=== PATIENT | male | born 1935 | race Caucasian/White ===

== ENCOUNTER → 2021-01-04 | Outpatient (CLI) | payer OTHER ==
[~2021-01-04] MED LIST: ASA81BEC PO; BENICAR HCT 401 EAC1 PO; BYSTOLIC 5 MG5 M1 PO; BYSTOLIC 5 MG5 MG PO; IMDUR 30 MG TAB30 M1 PO; LATANOPROST 0.2.5 ML OPHTHALMIC; MOMETASONE FURO45 GM; MUPIROCIN22 GM NARES; NIZORAL A-D125 ML TOP; PRAVASTATIN SOD20 MG PO; PRINZIDE 20-251 EACH PO; SILDENAFIL20 MG PO; TRIAMTERENE-HC1 EAC1 PO
== END ==
LOC: SJCVCIMAG 09:41
PROVIDERS: ATTEND Family Medicine
DX: I65.23 Occlusion and stenosis of bilateral carotid arteries (principal); E04.2 Nontoxic multinodular goiter; R94.39 Abnormal result of other cardiovascular function study; R09.89 Other specified symptoms and signs involving the circulatory and respiratory systems; I10 Essential (primary) hypertension; E78.00 Pure hypercholesterolemia, unspecified; K21.9 Gastro-esophageal reflux disease without esophagitis; E78.5 Hyperlipidemia, unspecified; Z88.8 Allergy status to other drugs, medicaments and biological substances; Z79.899 Other long term (current) drug therapy; Z87.891 Personal history of nicotine dependence

== ENCOUNTER 2021-01-16 07:20 | Observation (INO) | payer OTHER ==
[~2021-01-16] VITALS: Ht 175.3 cm; Wt 92.1 kg
[~2021-01-16 07:20] MED LIST changes: -ASA81BEC PO; -BENICAR HCT 401 EAC1 PO; -BYSTOLIC 5 MG5 M1 PO; -BYSTOLIC 5 MG5 MG PO; -IMDUR 30 MG TAB30 M1 PO; -LATANOPROST 0.2.5 ML OPHTHALMIC; -MOMETASONE FURO45 GM; -MUPIROCIN22 GM NARES; -NIZORAL A-D125 ML TOP; -SILDENAFIL20 MG PO
[2021-01-16 07:25] VITALS: BP 127/66
[2021-01-16] MEDS ORDERED: ASA81BEC PO (07:51)
[2021-01-16] MEDS ORDERED: BENICAR HCT 401 EAC1 PO (07:51)
[2021-01-16 07:52] LABS: HEMATOCRIT 43.6 % (42.0-52.0); HEMOGLOBIN 14.5 gm/dL (14.0-18.0); MCH 32.2 pg (26.0-34.0); MCHC 33.3 g/dL (28.0-37.0); MCV 96.7 fL (80.0-100.0); RBC 4.51 mil/uL (4.50-6.00); RDW 13.2 % (10.5-14.5)
[2021-01-16] MEDS ORDERED: SILDENAFIL20 MG PO (07:52)
[2021-01-16] MEDS ORDERED: NIZORAL A-D125 ML TOP (07:53)
[2021-01-16] MEDS ORDERED: MOMETASONE FURO45 GM (07:54)
[2021-01-16 08:02] LABS: CALCIUM 8.8 mg/dL (8.5-10.1); CREATININE 1.4 mg/dL (0.7-1.3); POTASSIUM 4.2 mmol/L (3.5-5.1)
--- NOTE | 2021-01-16 08:18 | EKG ---
[place] [address] [employer] [place] [address] ELECTROCARDIOGRAM REPORT Name: OFELIA MAHAN Room #: [facility]#: [id number] Admission: Attend Phys: Mikie Brady MD, Discharge: Date of : 37 Report #: [id number] 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 : 1935 Requested By: Mikie Brady Order Number: [id number] MD: Kemal Craven Measurements Intervals [place] Rate: 69 P: 74 [place]: 198 QRS: 42 QRSD: 118 T: 87 QT: 413 QTc: 443 Interpretive Statements Sinus rhythm Nonspecific ST and T wave abnormality Compared to ECG 02/01/2010 18:54:18 Nonspecific change in the ST and T wave segments Ventricular premature complex(es) no longer present Electronically Signed On 01-16-2021 8:18:40 CDT by Kemal Craven [email or web address] <ELECTRONICALLY SIGNED> By: Kemal Craven MD, [facility] 01/16/2118 Kemal Craven MD, [facility] /EPI
[2021-01-16 14:19] LABS: ABSOLUTE NEUTROPHILS 5.2 thou/uL (1.4-8.2); BASOPHILS 0.3 % (0.0-2.0); EOSINOPHILS 1.7 % (0.0-3.0); HEMATOCRIT 43.2 % (42.0-52.0); HEMOGLOBIN 14.7 gm/dL (14.0-18.0); LYMPHOCYTES 22.9 % (24.0-44.0); MCH 32.9 pg (26.0-34.0); MCV 96.7 fL (80.0-100.0); PLATELET COUNT 266 thou/uL (150-400); POLYS 66.1 % (36.0-66.0); RBC 4.47 mil/uL (4.50-6.00); RDW 13.1 % (10.5-14.5); WBC 7.8 thou/uL (4.0-11.0)
[2021-01-16 14:23] LABS: CALCIUM 8.8 mg/dL (8.5-10.1); CREATININE 1.4 mg/dL (0.7-1.3); POTASSIUM 4.1 mmol/L (3.5-5.1)
[2021-01-16 14:26] LABS: APTT 27.1 Seconds (24.5-32.8); INR 0.97; PROTIME 10.6 Seconds (10.5-12.1)
[2021-01-16 14:29] LABS: ALBUMIN 3.9 g/dL (3.4-5.0); TOTAL BILIRUBIN 0.7 mg/dL (0.2-1.0); TOTAL PROTEIN 7.5 g/dL (6.4-8.2)
[2021-01-17 00:06] LABS: GLYCOHEMOGLOBIN (HGB A1C) 5.9 % (4.8-5.6)
[2021-01-17] MEDS ORDERED: BYSTOLIC 5 MG5 M1 PO (08:09)
[2021-01-17] MEDS ORDERED: IMDUR 30 MG TAB30 M1 PO (08:09)
[2021-01-17 11:46] LABS: URINE BILIRUBIN NEGATIVE (Negative); URINE BLOOD 3+ (Negative); URINE CLARITY CLEAR; URINE COLOR YELLOW; URINE GLUCOSE-RANDOM* NEGATIVE (Negative); URINE KETONES NEGATIVE (Negative); URINE LEUKOCYTES-REFLEX NEGATIVE (Negative); URINE NITRITE-REFLEX NEGATIVE (Negative); URINE PROTEIN (DIPSTICK) NEGATIVE (Negative); URINE UROBILINOGEN 0.2 E.U./dl (0.2-1.0)
[2021-01-17 12:33] LABS: BACTERIA-REFLEX 1-9 Few /HPF (None Seen); CASTS None Seen /LPF (None Seen); CRYSTALS None Seen /LPF (None Seen); SQUAMOUS 0-3 Few /LPF (0-3); URINE RBC 3-10 Few /HPF (NONE SEEN); URINE WBC-REFLEX 0-5 Rare /HPF (0-5)
--- NOTE | 2021-01-17 13:52 | CATHLAB ---
[facility] [place] [address] INVASIVE PROCEDURE REPORT Name: GALOTORRIEFADUMOOFELIA Ger Room #: REG DEEPAK Jarek.#: [id number] Admission: 01/16/21 Attend Phys: Mikie Brady MD, Discharge: Date of : 37 Report #: [id number] THIS REPORT FOR: cc: Jun Sanon MD, Neal A. MD Mancuso, Gerald M. MD [facility] ~ APPROVED REPORT Study performed: 01/16/2021 07:22:31 Patient Details The patient is a 85 year-old male Event Personnel Mikie Brady Facility Supervisor, Amando Bhardwaj RN RN, Essence Méndez RTR, CLAUDIA Scrub, Radha Gomez RTR Scrub, Grace Parsons Monitor Procedures Performed Art Access - R femoral artery* Left Heart Cath w/or w/o Coronaries [id number] [facility] Renal Bilateral Peripheral Angiography 7945470 CVRENALBIL Aortogram Abdominal Peripheral Angio 522812 81158 Initial Mod Sed Same Phys/QHP Gr 764496 11348 Mod Sed Same Phys/QHP Ea 869529 Indication Chest pain Procedure Narrative The Right Groin^ was infiltrated with 1% Lidocaine subcutaneous anesthesia. A PINNACLE 6FR Sheath #[id number] sheath was inserted into the RFA 6F^. Coronary angiography was performed using coronary diagnostic catheters. The right coronary system was accessed and visualized with a JR4 catheter. The left coronary system was accessed and visualized with a JL4 catheter. The left ventricle was accessed and visualized with a STR PIG catheter. The patient tolerated the procedure well and there were no complications associated with the procedure. There was no hematoma. Intraoperative Conscious Sedation Sedation start time: 857 Case end Time: 934 Fentanyl 50 mcg Versed 1 mg [facility] [place] [address] INVASIVE PROCEDURE REPORT Name: OFELIA MAHAN Room #: [facility]#: [id number] Admission: 01/16/21 Attend Phys: Mikie Brady, Discharge: Date of : 37 Report #: [id number] Fluoro Time: 1.80 minutes Dose: DAP 7133.00 cGycm2 895 mGy Contrast Type and Amount: Visipaque 100 ml Hemodynamics The aortic pressure is 102/49 mmHg with a mean of 67 mmHg. The left ventricular pressure is 103/5 mmHg with a mean of mmHg. The left ventricular end diastolic pressure is 16 mmHg. Conclusion #1. Left main moderately calcified high-grade eccentric mid vessel lesion of 90% giving rise to LAD and circumflex. #2 ostial LAD just off the left main also 90% giving rise to the mildly diseased LAD diagonal system. Mid LAD with an eccentric 90% lesion. LAD extends around the apex well preserved. Diagonal branch also well-preserved after this mid vessel lesion. #3 circumflex OM nondominant high rising OM ramus branch mildly diseased. #4 dominant right coronary with mild to moderate irregularity in the mid vessel 50 to 60% with a preserved PDA GISEL anatomically dominant. #5 normal left ventricular size and systolic function EF 55 to 60% #6 left renal artery widely patent single. #7 a dual supply to the right renal artery superior larger branch has a 50% lesion with a high-grade lesion in the inferior branch of 90%. Will follow noninvasively.. Recommendations and plan: Continue aggressive risk factor modification. This is high-grade complex calcified disease. Will require revascularization by bypass surgery. LV function is preserved. CV surgical consultation. Patient is pain-free with resolution of any EKG changes transfer to CCU. <ELECTRONICALLY SIGNED> By: Mikie Brady MD, FACC 01/17/21 1352 1352 135 Mikie Brady MD, FACC /INF
[2021-01-18] MEDS ORDERED: BYSTOLIC 5 MG5 MG PO (08:51)
[2021-01-18] MEDS ORDERED: IMDUR 30 MG TAB30 M1 PO (08:52)
[2021-01-18] MEDS ORDERED: LATANOPROST 0.2.5 ML OPHTHALMIC (08:55)
[2021-01-18] MEDS ORDERED: MUPIROCIN22 GM NARES (08:56)
== END 2021-01-17 11:51 | disposition home or self-care (01) ==
LOC: CATH 07:20 → 4S 09:31 → CATH 10:45 → 4S 01-17 11:51
PROVIDERS: Physician Assistant; ADMIT Internal Medicine Cardiovascular Disease; ATTEND Internal Medicine Cardiovascular Disease
DX: I25.10 Atherosclerotic heart disease of native coronary artery without angina pectoris (principal); I10 Essential (primary) hypertension; K21.9 Gastro-esophageal reflux disease without esophagitis; E78.5 Hyperlipidemia, unspecified; Z79.899 Other long term (current) drug therapy; Z88.1 Allergy status to other antibiotic agents

== ENCOUNTER → 2021-01-17 | Outpatient (CLI) | payer OTHER ==
[~2021-01-17] MED LIST changes: +ASA81BEC PO; +BENICAR HCT 401 EAC1 PO; +BYSTOLIC 5 MG5 M1 PO; +BYSTOLIC 5 MG5 MG PO; +IMDUR 30 MG TAB30 M1 PO; +LATANOPROST 0.2.5 ML OPHTHALMIC; +MOMETASONE FURO45 GM; +MUPIROCIN22 GM NARES; +NIZORAL A-D125 ML TOP; +SILDENAFIL20 MG PO
== END ==
LOC: SJCVCIMAG 11:27
PROVIDERS: ATTEND Internal Medicine Cardiovascular Disease
DX: Z01.810 Encounter for preprocedural cardiovascular examination (principal); I25.10 Atherosclerotic heart disease of native coronary artery without angina pectoris; M79.661 Pain in right lower leg; M79.662 Pain in left lower leg

== ENCOUNTER 2021-01-21 06:09 | Inpatient (IN) | payer OTHER ==
[~2021-01-21] VITALS: Ht 175.3 cm; Wt 89.6 kg
[2021-01-21] VITALS (31 sets, daily range): BP systolic 101–129; BP diastolic 42–62
[2021-01-21 12:20] LABS: HEMATOCRIT 27.8 % (42.0-52.0); MCH 32.9 pg (26.0-34.0); MCHC 33.7 g/dL (28.0-37.0); MCV 97.8 fL (80.0-100.0); RBC 2.85 mil/uL (4.50-6.00); RDW 12.8 % (10.5-14.5); WBC 19.4 thou/uL (4.0-11.0)
[2021-01-21 12:24] LABS: HEMOGLOBIN 9.4 gm/dL (14.0-18.0)
[2021-01-21 12:36] LABS: APTT 30.4 Seconds (24.5-32.8); PROTIME 15.3 Seconds (10.5-12.1)
[2021-01-21 12:38] LABS: INR 1.43
[2021-01-21 13:11] LABS: POC BE 0 mmol/L (-2.0 to +3.0); POC CA IONIZED 4.7 mg/dL (4.5-5.3); POC GLUCOSE 130 mg/dL (70-99); POC HCO3 25.6 mmol/L (22.0-26.0); POC HEMOGLOBIN 11.9 g/dL (14.0-18.0); POC POTASSIUM 4.3 mmol/L (3.5-5.1); POC SODIUM 141 mmol/L (136-145); POC pCO2 43.2 mmHg (35.0-45.0); POC pH 7.381 (7.360-7.450)
[2021-01-21 13:11] LABS: POC BE 0 mmol/L (-2.0 to +3.0); POC CA IONIZED 4.1 mg/dL (4.5-5.3); POC GLUCOSE 132 mg/dL (70-99); POC HCO3 25.3 mmol/L (22.0-26.0); POC HEMOGLOBIN 10.2 g/dL (14.0-18.0); POC POTASSIUM 4.2 mmol/L (3.5-5.1); POC SODIUM 140 mmol/L (136-145); POC pCO2 42.8 mmHg (35.0-45.0); POC pH 7.379 (7.360-7.450)
[2021-01-21 13:11] LABS: POC BE -3 mmol/L (-2.0 to +3.0); POC CA IONIZED 4.8 mg/dL (4.5-5.3); POC GLUCOSE 159 mg/dL (70-99); POC HCO3 22.2 mmol/L (22.0-26.0); POC HEMOGLOBIN 10.2 g/dL (14.0-18.0); POC POTASSIUM 4.3 mmol/L (3.5-5.1); POC SODIUM 142 mmol/L (136-145); POC pCO2 38.4 mmHg (35.0-45.0)
[2021-01-21 13:11] LABS: POC BE 2 mmol/L (-2.0 to +3.0); POC CA IONIZED 4.7 mg/dL (4.5-5.3); POC GLUCOSE 113 mg/dL (70-99); POC HCO3 26.4 mmol/L (22.0-26.0); POC HEMOGLOBIN 12.2 g/dL (14.0-18.0); POC POTASSIUM 4.3 mmol/L (3.5-5.1); POC SODIUM 142 mmol/L (136-145); POC pCO2 38.9 mmHg (35.0-45.0)
[2021-01-21 13:11] LABS: POC BE 0 mmol/L (-2.0 to +3.0); POC CA IONIZED 4.4 mg/dL (4.5-5.3); POC GLUCOSE 153 mg/dL (70-99); POC HCO3 24.9 mmol/L (22.0-26.0); POC HEMOGLOBIN 9.5 g/dL (14.0-18.0); POC POTASSIUM 4.6 mmol/L (3.5-5.1); POC SODIUM 142 mmol/L (136-145); POC pCO2 41.3 mmHg (35.0-45.0); POC pH 7.388 (7.360-7.450)
[2021-01-21 13:11] LABS: POC BE 0 mmol/L (-2.0 to +3.0); POC CA IONIZED 4.3 mg/dL (4.5-5.3); POC GLUCOSE 145 mg/dL (70-99); POC HCO3 25.2 mmol/L (22.0-26.0); POC HEMOGLOBIN 8.8 g/dL (14.0-18.0); POC POTASSIUM 4.8 mmol/L (3.5-5.1); POC SODIUM 139 mmol/L (136-145); POC pCO2 43.9 mmHg (35.0-45.0); POC pH 7.367 (7.360-7.450)
[2021-01-21 13:11] LABS: POC BE 0 mmol/L (-2.0 to +3.0); POC CA IONIZED 4.5 mg/dL (4.5-5.3); POC GLUCOSE 154 mg/dL (70-99); POC HCO3 25.1 mmol/L (22.0-26.0); POC HEMOGLOBIN 10.2 g/dL (14.0-18.0); POC POTASSIUM 4.8 mmol/L (3.5-5.1); POC SODIUM 141 mmol/L (136-145); POC pCO2 42.6 mmHg (35.0-45.0); POC pH 7.377 (7.360-7.450)
[2021-01-21 13:11] LABS: POC BE -3 mmol/L (-2.0 to +3.0); POC CA IONIZED 4.5 mg/dL (4.5-5.3); POC GLUCOSE 155 mg/dL (70-99); POC HCO3 22.6 mmol/L (22.0-26.0); POC HEMOGLOBIN 10.9 g/dL (14.0-18.0); POC POTASSIUM 4.1 mmol/L (3.5-5.1); POC SODIUM 143 mmol/L (136-145); POC pCO2 40.1 mmHg (35.0-45.0); POC pH 7.359 (7.360-7.450)
--- NOTE | 2021-01-21 13:40 | NUR ---
received from surgery with OR crew to ICU #251 for immediate post op recovery post CABG X4. report received from Dr. Walters and crew. Sedated on vent, SR, MCT X2 and PCT to -20 cm suction, patent. see assessment for details.
[2021-01-21 14:07] LABS: BE(vivo) -8.3 mmol/L (-2 to +3); HCO3 18.3 mmol/L (22.0-26.0); PO2 180.6 mmHg (80.0-100.0)
[2021-01-21 14:08] LABS: pH 7.258 (7.360-7.450)
[2021-01-21 14:09] LABS: HEMATOCRIT 31.3 % (42.0-52.0); HEMOGLOBIN 10.6 gm/dL (14.0-18.0); MCH 32.8 pg (26.0-34.0); MCHC 33.8 g/dL (28.0-37.0); MCV 97.1 fL (80.0-100.0); RBC 3.23 mil/uL (4.50-6.00); RDW 12.8 % (10.5-14.5); WBC 19.9 thou/uL (4.0-11.0)
[2021-01-21 14:15] LABS: CALCIUM 7.3 mg/dL (8.5-10.1); CREATININE 1.3 mg/dL (0.7-1.3); MAGNESIUM 2.2 mg/dL (1.8-2.4); POTASSIUM 4.5 mmol/L (3.5-5.1)
[2021-01-21 14:20] LABS: APTT 26.6 Seconds (24.5-32.8); INR 1.1; PROTIME 11.9 Seconds (10.5-12.1)
--- NOTE | 2021-01-21 15:15 | NUR ---
albumin 250cc given for rio bp down to upper 80's and lower filling pressure. Varsha, significant other/spouse and pt's daughter present, updated on pt status. Questions answered. Varsha present to see pt in room. additional dose albumin administered for lowering bp and for lower filling pressures.
[2021-01-21 16:59] LABS: BE(vivo) -11.7 mmol/L (-2 to +3); HCO3 16.5 mmol/L (22.0-26.0); PCO2 46.7 mmHg (35.0-45.0); PO2 94.2 mmHg (80.0-100.0); sO2 95.1 % (92.0-98.0)
[2021-01-21 17:00] LABS: pH 7.167 (7.360-7.450)
--- NOTE | 2021-01-21 17:08 | EKG ---
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 : 1935 Requested By: Efrem Buckley Order Number: [id number] MD: Wilfred Ochoa Measurements Intervals [place] Rate: 97 P: 84 PA: 188 QRS: 60 QRSD: 116 T: 58 QT: 398 QTc: 506 Interpretive Statements Sinus rhythm Baseline wander in lead(s) V1,V2,V3 Compared to ECG 01/17/2021 06:58:51 No significant change Electronically Signed On 01-21-2021 17:08:13 CDT by Wilfred Ochoa [email or web address] <ELECTRONICALLY SIGNED> By: Wilfred Ochoa MD, [facility] 01/21/21 1708 06 06 Wilfred Ochoa MD, [facility] /EPI
[2021-01-21 18:16] LABS: CALCIUM 7.2 mg/dL (8.5-10.1); CREATININE 1.5 mg/dL (0.7-1.3); POTASSIUM 4.8 mmol/L (3.5-5.1)
[2021-01-21 18:43] LABS: BE(vivo) -9.6 mmol/L (-2 to +3); HCO3 16.4 mmol/L (22.0-26.0); PCO2 36.1 mmHg (35.0-45.0); PO2 99.3 mmHg (80.0-100.0); pH 7.275 (7.360-7.450); sO2 96.8 % (92.0-98.0)
[2021-01-21 19:12] LABS: BE(vivo) -9.5 mmol/L (-2 to +3); HCO3 17.5 mmol/L (22.0-26.0); PCO2 42.3 mmHg (35.0-45.0); pH 7.234 (7.360-7.450); sO2 96.2 % (92.0-98.0)
--- NOTE | 2021-01-21 19:33 | NUR ---
pt awakening spontaneously, moving all extremities. cpap trial completed with abg's with critical ph 7.[address] Cheung. returned to assist control. when pt awake, replaced on cpap. pt restless and irritated that breathing tube remains in. abg's post cpap communicated to Dr. Cheung. pt extubated per Dr. Cheung's order. extubated at 1933 by RT Merrill, placed on 50% face shield. report given to JOSE MARTIN Ramirez.
[2021-01-21 20:15] LABS: BE(vivo) -9.3 mmol/L (-2 to +3); HCO3 18.2 mmol/L (22.0-26.0); PCO2 46.3 mmHg (35.0-45.0); PO2 123.7 mmHg (80.0-100.0); sO2 97.7 % (92.0-98.0)
[2021-01-21 20:16] LABS: pH 7.213 (7.360-7.450)
[2021-01-22] VITALS (21 sets, daily range): BP systolic 79–122; BP diastolic 35–92
--- NOTE | 2021-01-22 06:45 | NUR ---
01/21/21, 2100: Pt changed frm 50% face shield to 5 L canula. Sat remains > 94% 2300: O2 titrated down to 2 L, sat remains > 93%. Pt requesting pain med q1-2 hours for sternal and left back pain. Fentanyl given q 2 hrs as ordered. 01/22/21: 0145: Amiodorone gtt turned off due to heart rate dropping below 60 at times and hypotension not corrected with albumin bolus. Urine output decreasing. Abarca irrigated with 30 cc NS. 10 cc urine plus irrigation fluid returned, no clots. 0300: Blood sugar down to 91; insulin gtt put on hold. Lidoderm patch tried for left back pain. Pt reports it helps. Urine output remains poo despite albumin boluses. 0400: Bladder scan shows zero cc in bladder. Pt started on double strength Levophed to keep MAP > 60 per previous orders given by Dr Cheung. Mediastinal and plural chest tubes draining 10-50 cc bloody drainage per hour. Hemodynamics stable.
[2021-01-22 06:54] LABS: HEMATOCRIT 30.5 % (42.0-52.0); HEMOGLOBIN 9.7 gm/dL (14.0-18.0); MCH 32.5 pg (26.0-34.0); MCV 101.7 fL (80.0-100.0); WBC 18.4 thou/uL (4.0-11.0)
[2021-01-22 07:06] LABS: CALCIUM 7.1 mg/dL (8.5-10.1); CREATININE 2.3 mg/dL (0.7-1.3); MAGNESIUM 2.5 mg/dL (1.8-2.4); POTASSIUM 4.9 mmol/L (3.5-5.1)
--- NOTE | 2021-01-22 07:26 | EKG ---
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
--- NOTE | 2021-01-22 08:11 | NUR ---
Nutrition: S/P CABG x 4, POD 1. RD to followup and assess education needs when out of ICU and closer to D/C.
--- NOTE | 2021-01-22 09:06 | NUR ---
Chart review. discussed during am rounds. s/p CABG x 4, pod # 1. Cm tried to visit with him, he voiced he did not want to talk now, took pain pill an hour ago and still in pain. Cm letting him rest and passed on information to bedside nurse.
--- NOTE | 2021-01-22 09:37 | NUR ---
MED W FENTANYL FOR OP PAIN.PT STATES PAIN PILL HASN'T HELPED AT ALL. SPLINTING RESP'S,GRUNTING IN RESPONE TO ?'S.WOULD NOT REPOS-WILL ATTEMPT LATER.--VW
--- NOTE | 2021-01-22 12:45 | NUR ---
[place] dc'd and L leg starr wrap removed at 1155, well tolerated. SB with poor "p wave", low bp, restarted levophed 4 mcg/min. ventricular paced-80, MA/current-10. pt with flattened effect, drowsy yet restless. Dr. Cheung present, updated. low bloody urine output per sr. (sr irrigated prior to Dr. Cheung's arrival, urine remained patent, bloody without clots.)
[2021-01-22 14:45] LABS: CALCIUM 7.4 mg/dL (8.5-10.1)
[2021-01-22 14:46] LABS: CREATININE 3.3 mg/dL (0.7-1.3)
[2021-01-22 14:55] LABS: POTASSIUM 6.3 mmol/L (3.5-5.1)
[2021-01-22 15:11] LABS: BE(vivo) -17.6 mmol/L (-2 to +3); HCO3 13.6 mmol/L (22.0-26.0); PCO2 56.6 mmHg (35.0-45.0); PO2 87.7 mmHg (80.0-100.0); sO2 90.8 % (92.0-98.0)
[2021-01-22 15:12] LABS: pH 6.999 (7.360-7.450)
--- NOTE | 2021-01-22 16:00 | NUR ---
second call placed to answering service regarding follow up for renal consult. renal md to be available as soon as office pt's completed. Dr. Cheung and EMMY Medina present. pt joanne/arnold. based on low blood pressures at 1500, despite levophed up to 14 mcg/min, dobutamine started at 5 mcg/kg/hr. 1/2 NS 500cc bolus infusing, albumin infusing. now on bipap 07/08, rate-20, fio2-50%.
[2021-01-22 16:16] LABS: BE(vivo) -17.6 mmol/L (-2 to +3); HCO3 12.4 mmol/L (22.0-26.0); PCO2 46.8 mmHg (35.0-45.0); PO2 91.1 mmHg (80.0-100.0); pH 7.041 (7.360-7.450); sO2 92.7 % (92.0-98.0)
[2021-01-22 17:17] LABS: BE(vivo) -16.4 mmol/L (-2 to +3); HCO3 13.2 mmol/L (22.0-26.0); PCO2 47.4 mmHg (35.0-45.0); PO2 75.7 mmHg (80.0-100.0); pH 7.064 (7.360-7.450); sO2 88.6 % (92.0-98.0)
--- NOTE | 2021-01-22 17:30 | NUR ---
Dr. Chow previously returned call for consult. updated. lasix 80 mg iv, an amp D50 administered, insulin gtt remains in progress. additional dose of albuterol nebulizer 10 mg x1 administered by . Traci pate failing to read an accurate waveform, discontinued by Dr. Cheung with new line placed in L wrist.
--- NOTE | 2021-01-22 19:15 | NUR ---
insulin gtt previously off. Dr. Chow was present. call placed for renal consult and md returned call. updated on pt status- hematuria/oliguria/BRODY, he will see pt in am.
--- NOTE | 2021-01-22 19:30 | NUR ---
BEDSIDE REPORT GIVEN FROM JOSE MARTIN RVIERA. ALL LINES AND ACCESS SITES VISUALIZED BY BOTH RN'S. PT ASSESSED PER ICU PROTOCOL. DOBUTAMINE GTT AND LEVOPHED GTT IN PLACE FOR BLOOD PRESSURE SUPPORT. PT A&OX4. BIPAP AT 50% FIO2. BRITO IN PLACE, MAKING APPROX 5ML/HR DARK RED URINE. 1929 - DR. BUENO AT BEDSIDE ROUNDING. 2021 - DR. CAMEJO CALLED TO CLARIFY IV FLUID ORDERS. ADDITIONAL ORDERS RECEIVED, REFER TO EMAR. 2099 - PT STARTED DECLINING, HR WAS SUSTAINED IN 40'S INTERNAL PACEMAKER TURNED ON. BLOOD PRESSUE GOT LOW 68/31. LEVOPHED GTT WAS TITRATED ACCORDINGLY TO MAINTAIN A MAP >65. DR. BUENO WAS CALLED AND NOTIFIED OF THE CHANGES IN PT STATUS, AND CRITICAL ABG'S. STAT ECHO ORDERED. 2121 - ON CAR SUPERVISOR CALLED IN STATING THEY WERE ON THERE WAY IN. 2124 - NELL NOTIFIED OF CRITIAL LACTIC ACID AND CRITICAL ABG'S. 2129 - DR. BUENO AT BEDSIDE. NOTIFIED OF CRITICAL LACTIC ACID. PACEMAKER WAS TURNED OFF. 2144 - ON CAR SUPERVISOR AT BEDSIDE. 2149 - VERBAL ORDER RECEIVED FROM DR. BUENO TO START IV ALBUMIN AND TO MAINTAIN A CVP.
[2021-01-22 20:57] LABS: HCO3 12.9 mmol/L (22.0-26.0); PCO2 43.1 mmHg (35.0-45.0); PO2 98.8 mmHg (80.0-100.0); pH 7.094 (7.360-7.450); sO2 94.9 % (92.0-98.0)
[2021-01-23 04:40] LABS: HEMATOCRIT 24.7 % (42.0-52.0); HEMOGLOBIN 8.2 gm/dL (14.0-18.0); MCH 32.7 pg (26.0-34.0); MCHC 33.2 g/dL (28.0-37.0); MCV 98.4 fL (80.0-100.0); RBC 2.51 mil/uL (4.50-6.00); RDW 13.4 % (10.5-14.5); WBC 12.8 thou/uL (4.0-11.0)
[2021-01-23 05:20] LABS: ALBUMIN 4.2 g/dL (3.4-5.0); CALCIUM 6.8 mg/dL (8.5-10.1); PHOSPHORUS 6.8 mg/dL (2.5-4.9); POTASSIUM 4.5 mmol/L (3.5-5.1); TOTAL BILIRUBIN 0.9 mg/dL (0.2-1.0); TOTAL PROTEIN 6.2 g/dL (6.4-8.2)
[2021-01-23 07:01] LABS: BE(vivo) -9.8 mmol/L (-2 to +3); HCO3 15.8 mmol/L (22.0-26.0); PCO2 33.7 mmHg (35.0-45.0); PO2 115.6 mmHg (80.0-100.0); sO2 97.8 % (92.0-98.0)
--- NOTE | 2021-01-23 07:33 | NUR ---
PATIENT APPEARS RESTLESS. HE HAS AN INCREASE RESP, RATE WHILE ON BIPAP. PATIENT CONTINUES TO GET GOOD VOLUMES AND LOW PRESSURES ON BIPAP.
[2021-01-23 08:02] LABS: BE(vivo) -11.8 mmol/L (-2 to +3); HCO3 15.1 mmol/L (22.0-26.0); PCO2 38.3 mmHg (35.0-45.0); PO2 280.2 mmHg (80.0-100.0); sO2 99.5 % (92.0-98.0)
[2021-01-23 08:03] LABS: pH 7.214 (7.360-7.450)
[2021-01-23 08:05] VITALS: BP 102/42
--- NOTE | 2021-01-23 08:22 | 2DMMODE ---
[address] [address] 2 D/M-MODE ECHOCARDIOGRAM Name: OFELIA MAHAN Room #: 251-P ADM IN M.R.#: [id number] Admission: 01/21/21 Attend Phys: Jaren Cheung MD Discharge: Date of : 37 Report #: [id number] THIS REPORT FOR: cc: Jun Sanon MD, Neal A. MD Santiago, Patrick MD [facility] ~ APPROVED REPORT Study performed: 01/22/2021 21:55:43 EXAM: Limited 2D and color flow Echocardiogram Patient Location: ICU Room #: [facility] Status: on-call BSA: 2.11 HR: 77 bpm BP: 73/47 mmHg Other Information Study Quality: Technically Difficult and Technically Limited Technically limited study due to post operative dressings, inability to position patient. Indications Hypotension CAD Post CABG. Very limited exam due to post op dressings. 2D Dimensions RVDd: 45.53 mm Left Ventricle The overall left ventricular systolic function appears within normal limits. Right Ventricle Right ventricle is dilated. Aortic Valve The aortic valve is not well visualized. Mitral Valve Mitral valve is not well visualized. [address] [address] D/M-MODE ECHOCARDIOGRAM Name: OFELIA MAHAN Room #: 251-P [facility] IN ..#: [id number] Admission: 01/21/21 Attend Phys: Jaren Cheung MD Discharge: Date of : 37 Report #: [id number] Tricuspid Valve Tricuspid valve is not well visualized. Pulmonic Valve Pulmonic valve is not visualized. Pericardium There is no pericardial effusion. <Conclusion> Technically very difficult study Left ventricle appears to be normal in size. Normal septal thickness Ejection fraction around 50-55% Unable to comment on wall motion abnormality. Valves not well visualized No pericardial effusion <ELECTRONICALLY SIGNED> By: Wilfred Ochoa MD, FACC 01/23/21821 1 1 Wilfred Ochoa MD, FACC /INF
[2021-01-23 08:57] VITALS: BP 86/39
--- NOTE | 2021-01-23 11:30 | NUR ---
>>>>>>>>>>>>>> 0745- Dr. Cheung present. platelets low- per order HIT panel drawn and sent to lab. >>>>>>>>>>>>>> 0750- With 2 RN assist, quickly attempted placement of gastric tube in each nare however met with resistance upon insertion. pt vagaled, eyes rolled back, unresponsive, with hr-40's. pacemaker vent rate-80, MA-10 restarted per cardiac pacing wire. EMMY Medina and Angel Jones, Cardiology SURFACE TO AIR WEAPONS OFFICER present. >>>>>>>>>>>>>> 0820- Dr. Chakraborty present, updated. Dr. Godinez consulted, present. >>>>>>>>>>>>>> 0920- Second attempt- ng placement unsuccessful. pt vagaled, unresponsive, paced, immediately replaced on bipap. EMMY Medina, Dr. Chakraborty and Dr. Godinez present along with resp therapist. with previous coordination for immediate intubation if needed, Dr. Godinez placed an ett-8.0, 24fr at teeth, well tolerated. confirmed placement with end tidal c02 detector and lung sounds per ascultation. og tube placed-56cm at lips, well tolerated. pcxr/kub completed to confirm ett/og tube placement. >>>>>>>>>>>>>> 0935- OG drained 700cc yellow/knox clear secretions with intermittent large amounts of air. Dr. Brady present, updated on pt status. >>>>>>>>>>>>>> 1130- propofol started when pt awakening/restless at 1030. then lasix gtt 10mg/hr continous started at 1130. Varsha- significant other present, updated on pt status.
[2021-01-23 11:35] LABS: BE(vivo) -7.5 mmol/L (-2 to +3); HCO3 17.9 mmol/L (22.0-26.0); PCO2 35.5 mmHg (35.0-45.0); PO2 284.6 mmHg (80.0-100.0); sO2 99.6 % (92.0-98.0)
--- NOTE | 2021-01-23 11:53 | NUR ---
PER TITTRATED PATIENT RATE FROM 20 TO 18 PER ABG. RT TITRATED OXYGEN FOR 100% NOW DOWN TO 40% PER ABG PO2 284.6
[2021-01-23 12:00] VITALS: BP 78/38
--- NOTE | 2021-01-23 13:57 | NUR ---
Chart review. during am rounds, required to be intubated. s/p CABG day # 2. cm called daughter anya [phone], she passed on that her brother jesús who goes by raya is main contact but she can visit with cm about dads independence at home. Lives alone, very independent. manage own medication. drives vehicle, runs own errands when needed. no hh or rehab in past. no falls at home. PCP Dr Sanon.
--- NOTE | 2021-01-23 14:27 | NUR ---
consent obtained. Dr. Marks present to place temporary dialysis catheter at 1410 at bedside. accompanied by interventional radiology crew. procedure well tolerated, portable chest x ray completed to confirm placement.
[2021-01-23 16:00] VITALS: BP 82/43
--- NOTE | 2021-01-23 17:01 | NUR ---
P.T. EVAL PLACED ON HOLD DUE TO PT DECLINE IN MEDICAL STATUS W/NEED FOR RE- INTUBATION AND DIALYSIS. REQUEST NEW P.T. ORDERS WHEN PT IS DEEMED APPROPRIATE FOR P.T. INTERVENTIONS.
--- NOTE | 2021-01-23 19:15 | NUR ---
dialysis in progress without fluid removal. titrating vasoactive gtts, sa02 down to 81%, suctioned x2 obtaining scant amount thick secretions. vent increased to Fi02 to 60%, in increments of 10%. spoke with resp therapy to update on pt status/vent change. report to jostin Modi RN.
[2021-01-24 07:51] LABS: ALBUMIN 3.3 g/dL (3.4-5.0); CALCIUM 6.8 mg/dL (8.5-10.1); CREATININE 3.7 mg/dL (0.7-1.3)
[2021-01-24 07:52] LABS: HEMATOCRIT 23.3 % (42.0-52.0); HEMOGLOBIN 8.1 gm/dL (14.0-18.0); MCH 33.1 pg (26.0-34.0); MCHC 34.8 g/dL (28.0-37.0); MCV 95.2 fL (80.0-100.0); RBC 2.44 mil/uL (4.50-6.00); RDW 13.4 % (10.5-14.5); WBC 8.1 thou/uL (4.0-11.0)
[2021-01-24 08:00] VITALS: BP 86/32
--- NOTE | 2021-01-24 09:10 | NUR ---
Chart review, discussed with MEDICAL OFFICE CLERK. Remains on vent, having dialysis today. Family at bedside. No anticipated no over the weekend. Will cont. following as needed for dc needs.
[2021-01-24 09:54] LABS: POTASSIUM 3.4 mmol/L (3.5-5.1)
--- NOTE | 2021-01-24 10:44 | NUR ---
ASSUMED CARE 0700. [employer] UP & RUNNING ~0845. TREY BLACKBURN,ALIVIA ALL IN TO SEE. LONG D/W PT'S SON & S.O. BY MELCHOR BUENO & TREY. IRENE HD AT TIS TIME.--VW
[2021-01-24 13:27] VITALS: BP 107/47
--- NOTE | 2021-01-24 16:12 | O ---
[facility] [place] [address] OPERATIVE REPORT Name: OFELIA MAHAN Room #: 251-P ADM IN M.R.#: [id number] Admission: 01/21/21 Attend Phys: Jaren Cheung MD Discharge: Date of : 37 Report #: [id number] THIS REPORT FOR: cc: Jun Sanon MD, Neal A. MD Forman,Jaren Leon MD ~ DOC #: [id number] Jaren Cheung MD DATE OF SERVICE: 01/21/2021 PREOPERATIVE DIAGNOSIS: Coronary artery disease. POSTOPERATIVE DIAGNOSIS: Coronary artery disease. OPERATION: Coronary artery bypass x4 including left internal mammary artery to left anterior descending artery, saphenous vein to diagonal and ramus and saphenous vein to posterior descending artery and endoscopic harvest, left greater saphenous vein. SURGEON: Dr. Jaren Cheung. GOLD CHARMER: EMMY Maurer. ANESTHESIA: General. INDICATION: The patient is an 85-year-old with coronary artery disease. Catheterization demonstrated a 90% left main as well as a 90% mid LAD lesion. Circumflex is nondominant with the largest vessel in the ramus position, right coronary had a 60% lesion. Left ventricular function satisfactory. FINDINGS AND TECHNIQUE: After general anesthesia was established, saphenous vein was harvested using an endoscopic approach and prepared for use as a conduit. Exposure was obtained through median sternotomy. Left internal mammary artery was harvested from chest wall. Pericardial well was made. Cannulation sutures were placed. Heparin was given. Aorta was cannulated. Right atrium was cannulated. Cardioplegia needle was positioned in the aortic root. Retrograde cardioplegic catheter was placed in the coronary sinus. Cardiopulmonary bypass was established. Aorta was cross clamped. Antegrade and retrograde cardioplegia were given. Ice was poured into the pericardial well. The heart was stopped. During electromechanical arrest, the distal anastomoses were performed. An end-to-side anastomosis was made between vein and the posterior descending artery. Cold cardioplegia was given. Separate segment of vein was sewn in [facility] [address] [place] [address] OPERATIVE REPORT Name: OFELIA MAHAN Room #: 251-P [facility] IN M.R.#: [id number] Admission: 01/21/21 Attend Phys: Jaren Cheung MD Discharge: Date of : 39 Report #: [id number] end-to-side fashion to the ramus intermedius. Cold cardioplegia was given. The same segment of vein was sewn in end-to-side fashion to the second diagonal. Cold cardioplegia was given. Left internal mammary artery was sewn in end-to-side fashion to the left anterior descending artery. Patency of this vessel was checked with the temperature technique and the Doppler. Cold cardioplegia was given. Two proximal anastomoses were performed. When these were complete, warm retrograde cardioplegia was given followed by warm continuous blood through the coronary sinus. When this infusion was complete, the crossclamp was removed. De-airing maneuvers were performed. The anastomoses were inspected and found to be satisfactory. As the patient warmed, nice cardiac activity resumed, chest tubes and pacing wires were placed. A marker was placed around the proximal anastomoses. When the patient was warm, he was weaned from cardiopulmonary bypass. Venous cannula was removed. Protamine was given, the aortic cannula was removed. Flows were measured in the bypass grafts. When hemostasis was satisfactory, chest was irrigated with antibiotic solution and closed in the usual fashion. The patient was taken to the Intensive Care Unit in good condition having tolerated the procedure well. All counts were reported as correct. MD SALVADOR Puente/MODE <ELECTRONICALLY SIGNED> By: Jaren Cheung MD 01/24/21 1612 1846 14 Jaren Cheung MD /nt
[2021-01-24 17:07] LABS: HEPATITIS B SURFACE AG Negative (Negative)
[2021-01-24 22:00] VITALS: BP 97/38
[2021-01-25] VITALS (7 sets, daily range): BP systolic 84–123; BP diastolic 33–52
[2021-01-25 05:23] LABS: ABSOLUTE NEUTROPHILS 9.8 thou/uL (1.4-8.2); BASOPHILS 0.1 % (0.0-2.0); EOSINOPHILS 0.2 % (0.0-3.0); HEMATOCRIT 26.3 % (42.0-52.0); HEMOGLOBIN 8.9 gm/dL (14.0-18.0); LYMPHOCYTES 6.4 % (24.0-44.0); MCH 32.8 pg (26.0-34.0); MCHC 33.9 g/dL (28.0-37.0); MCV 96.8 fL (80.0-100.0); MONOCYTES 8.2 % (1.0-8.0); PLATELET COUNT 78 thou/uL (150-400); POLYS 85.1 % (36.0-66.0); RBC 2.72 mil/uL (4.50-6.00); RDW 13.5 % (10.5-14.5); WBC 11.5 thou/uL (4.0-11.0)
[2021-01-25 05:39] LABS: ALBUMIN 2.9 g/dL (3.4-5.0); CALCIUM 7.5 mg/dL (8.5-10.1); CREATININE 4.1 mg/dL (0.7-1.3); POTASSIUM 4.2 mmol/L (3.5-5.1); TOTAL BILIRUBIN 1.8 mg/dL (0.2-1.0); TOTAL PROTEIN 5.1 g/dL (6.4-8.2)
[2021-01-25 08:09] LABS: HCO3 26.5 mmol/L (22.0-26.0); PCO2 32.1 mmHg (35.0-45.0); PO2 102.7 mmHg (80.0-100.0); pH 7.535 (7.360-7.450); sO2 98.3 % (92.0-98.0)
--- NOTE | 2021-01-25 08:13 | NUR ---
Received phone call from pt. son raya who stated he was in here and had question about his records here, who hospital will contact and dpoa? CM visited with son and daughter in law. Education that contacts austyn is (jesús) raya, Maritza, and Varsha. Son voiced that is fine, Varsha can get information, but she will not make decision for him, she is his girlfriend, and he would want her to get information, but she is not his decision maker, DPOA is son and daughter. CM encouraged for him to leave copy, but he was concerned that would change want dad wanted when he came in for surgery? Education that that would not change in less Dr discussed changing the plan of care or goals.
--- NOTE | 2021-01-25 09:11 | EKG ---
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 : 1935 Requested By: Efrem Buckley Order Number: [id number] MD: Wilfred Ochoa Measurements Intervals [place] Rate: 90 P: 0 RI: 142 QRS: 59 QRSD: 94 T: 57 QT: 384 QTc: 470 Interpretive Statements Sinus rhythm Transient Ventricular bigeminy Abnormal R-wave progression, early transition Compared to ECG 01/22/2021 07:08:09 No significant changes Electronically Signed On 01-25-2021 9:11:30 CDT by Wilfred Ochoa [email or web address] <ELECTRONICALLY SIGNED> By: Wilfred Ochoa MD, [facility] 06/910 2 2 Wilfred Ochoa MD, [facility] /EPI
--- NOTE | 2021-01-25 17:24 | NUR ---
Nurse rounded at bedside with physicians today. Family and physicians updated on patient status, progress, and care plan. Dialysis today, Dr. Guillaume was able to talk with patients family this afternoon. Gtt's are being titrated for desired effect. Amiodarone started today, pvc rate has decreased with blood pressure 100's-140's. When patient has increased frequency of pvc's, it is noted that his blood pressure lowers to 70's-80's systolic. With less pvc's, patients blod pressure higher. Patient opened eyes today, tracked nurse, and followed simple commands with gripping hands. Plan of care is to continue to monitor patient vital signs, urine output, chest tube status, patients neuro status, and ability to lower gtt's per physician order. Patient progressing towards plan of care.
[2021-01-26] VITALS: BP 119/44
[2021-01-26 04:00] VITALS: BP 121/54
[2021-01-26 04:11] LABS: BE(vivo) -0.3 mmol/L (-2 to +3); HCO3 22.6 mmol/L (22.0-26.0); PCO2 29.9 mmHg (35.0-45.0); PO2 63.1 mmHg (80.0-100.0); pH 7.496 (7.360-7.450); sO2 94.1 % (92.0-98.0)
[2021-01-26 04:38] LABS: ABSOLUTE NEUTROPHILS 9.3 thou/uL (1.4-8.2); BASOPHILS 0.4 % (0.0-2.0); EOSINOPHILS 0.6 % (0.0-3.0); HEMATOCRIT 25.4 % (42.0-52.0); HEMOGLOBIN 8.6 gm/dL (14.0-18.0); LYMPHOCYTES 5.8 % (24.0-44.0); MCH 32.5 pg (26.0-34.0); MCHC 33.6 g/dL (28.0-37.0); MCV 96.7 fL (80.0-100.0); MONOCYTES 13.1 % (1.0-8.0); PLATELET COUNT 98 thou/uL (150-400); POLYS 80.1 % (36.0-66.0); RBC 2.63 mil/uL (4.50-6.00); RDW 13.9 % (10.5-14.5); WBC 11.6 thou/uL (4.0-11.0)
[2021-01-26 04:56] LABS: ALBUMIN 2.8 g/dL (3.4-5.0); CALCIUM 7.5 mg/dL (8.5-10.1); CREATININE 3.6 mg/dL (0.7-1.3); POTASSIUM 4.9 mmol/L (3.5-5.1); TOTAL BILIRUBIN 2.2 mg/dL (0.2-1.0); TOTAL PROTEIN 5.3 g/dL (6.4-8.2)
[2021-01-26 08:00] VITALS: BP 127/52
[2021-01-26 12:01] VITALS: BP 107/42
[2021-01-26 16:00] VITALS: BP 118/46
--- NOTE | 2021-01-26 16:59 | NUR ---
SPOKE W/ PT'S DAUGHTER, LIANG ON THE PHONE. UPDATE GIVEN. REASSURANCES AND EMOTIONAL SUPPORT PROVIDED.
--- NOTE | 2021-01-26 18:25 | NUR ---
PT TOLERATED HEMODIALYSIS TODAY W/ 500 CC PULLED OFF. PT TOLERATED ACTIVE TITRATION DOWN OF LEVOPHED AND DOBUTAMINE. AMIODARONE DRIP TO REMAIN PER DR. CARDONA. PROPOFOL TITRATED DOWN SLIGHTLY. PT RESPONSIVE TO TACTILE STIMULI AND MOVES LOWER EXTREMITIES INDEPENDENTLY. PT AFEBRILE TODAY. MULTIPLE FAMILY MEMBERS IN TO VISIT TODAY W/ PHONE CALL FROM PT'S DAUGHTER FOR UPDATE WELL. PT REMAINS IN GUARDED CONDITION BUT SLOWLY PROGRESSING TOWARD GOALS.
[2021-01-26 20:00] VITALS: BP 105/48
[2021-01-27 00:01] VITALS: BP 94/31
[2021-01-27 04:00] VITALS: BP 106/45
[2021-01-27 05:04] LABS: ALBUMIN 2.4 g/dL (3.4-5.0); CALCIUM 7.4 mg/dL (8.5-10.1); CREATININE 3.2 mg/dL (0.7-1.3); POTASSIUM 4.8 mmol/L (3.5-5.1)
[2021-01-27 07:36] LABS: BE(vivo) 2.5 mmol/L (-2 to +3); HCO3 26.5 mmol/L (22.0-26.0); PCO2 38.4 mmHg (35.0-45.0); PO2 94.9 mmHg (80.0-100.0); pH 7.456 (7.360-7.450); sO2 97.6 % (92.0-98.0)
--- NOTE | 2021-01-27 19:30 | NUR ---
progressing. when sedation decreased, moves ezra toes to command. sr with bigemeny, low dose dobutamine and levophed, propofol decreased, cpap trial from 0700 till 1100, well tolerated. mct and pct air leaks resolved. Varsha-girlfriend, significant other present, updated. Jaren- son and his present, updated.
[2021-01-27 19:56] VITALS: BP 94/36
[2021-01-27 20:01] VITALS: BP 109/34
[2021-01-27 23:15] VITALS: BP 106/25
[2021-01-28] VITALS (12 sets, daily range): BP systolic 73–152; BP diastolic 26–72
[2021-01-28 05:26] LABS: ALBUMIN 2.3 g/dL (3.4-5.0); CALCIUM 7.4 mg/dL (8.5-10.1); PHOSPHORUS 6.5 mg/dL (2.6-4.7); POTASSIUM 4.9 mmol/L (3.5-5.1)
[2021-01-28 05:27] LABS: CREATININE 4.7 mg/dL (0.7-1.3)
--- NOTE | 2021-01-28 11:21 | NUR ---
Nutrition: NPO x 4 days. If pt not extubated today. REC start Nepro tube feeds to reach 40 mL/hr for now.
--- NOTE | 2021-01-28 12:25 | NUR ---
Chart review. Discussed during am rounds. He remains on vent, nutritional support. Having dialysis today. IV drips. son and patient girl friend andreia at bedside. Will cont following as needed for dc needs.
--- NOTE | 2021-01-28 19:15 | NUR ---
progressing today. in am, mct/pct dc'd with post pcxr completed. flotrac initiated. opening eyes spontaneously, moving r hand and ezra lower ext to command, sr with bigeminal pvc's. dobutamine, levophed titrated off, amiodarone iv changed to po. from [id number], propofol off. pt coughing, red in face and bucking vent. propofol restarted. Dr. Godinez present again in afternoon. precedex started per order, propofol off, pt resting, tolerating vent. from [id number], dialysis in progress- 500cc fluid removal. all blood returned. able to titrate off dobutamine and levophed during dialysis run. post dialysis hr-32, pacemaker turned on with rate-80, vent MA-10, capturing consistently. levophed restarted @ 1600 for sbp down to 70's and as low as 69. bp with significant flucuations being elevated when dialysis blood returned and when low post dialysis. held off on cpap trials at this time related to cardiac instability. Jaren-son present, Varsha- girlfriend present both present in am, updated. Maritza-daughter called, updated.
[2021-01-28 23:14] LABS: BE(vivo) -2.1 mmol/L (-2 to +3); PCO2 34.7 mmHg (35.0-45.0); PO2 154.5 mmHg (80.0-100.0)
[2021-01-29] VITALS (8 sets, daily range): BP systolic 73–136; BP diastolic 39–70
[2021-01-29 05:55] LABS: ALBUMIN 2.2 g/dL (3.4-5.0); CALCIUM 7.5 mg/dL (8.5-10.1); CREATININE 3.8 mg/dL (0.7-1.3); PHOSPHORUS 5.5 mg/dL (2.5-4.9); POTASSIUM 4.7 mmol/L (3.5-5.1)
--- NOTE | 2021-01-29 05:58 | NUR ---
Patient has done well on the Precedex. Wakes easily but back to sleep unless stimulated. Denies pain. Heart rate and rhythm stable this shift. Paced in the beginning of the shift but has been in his own SR most of the night. Blood pressure labile. SBP drops with suctioning, repositioning, coughing but does return to normal after a short while without intervention. Afebrile. Noticeing some PVCs this am. Levophed continues at 3 mcgs/min. Adequate oxygenation on current vent settings. Patient did CPAP for about 4 hours at the beginning of the shift. Tolerating well. ABGs noted. Some bloody secretions from ETT noted. CXR done this am. Started tube feeds, Nepro at 10 mls/hr. Minimal residual this am. U/O 60 mls this shfit. Bath given. all dressings changed. Am labs drawn. Awaiting results. No family called this shift. Patient is progressing towards goals. See documentation on interventions for assessment details.
--- NOTE | 2021-01-29 08:35 | NUR ---
Dr. Godinez present, updated. Dr. Boo" renal present, updated.
[2021-01-29 10:09] LABS: BE(vivo) -0.6 mmol/L (-2 to +3); HCO3 23.3 mmol/L (22.0-26.0); PCO2 35.7 mmHg (35.0-45.0); PO2 111.4 mmHg (80.0-100.0); pH 7.433 (7.360-7.450); sO2 98.2 % (92.0-98.0)
--- NOTE | 2021-01-29 10:10 | NUR ---
abg's completed after cpap trial. plan to extubate. rn administering amiodarone po and Dr. Godinez ok with extubating after medication has time to absorb. tube feeding off.
--- NOTE | 2021-01-29 12:02 | EKG ---
[address] [place] [address] ELECTROCARDIOGRAM REPORT Name: OFELIA MAHAN Room #: 251-P [facility] IN M.R.#: [id number] Admission: 01/21/21 Attend Phys: Jaren Cheung MD Discharge: Date of : 39 Report #: [id number] [facility] Test Date: 2021-01-29 Test Time: 10:30:32 Pat Name: OFELIA MAHAN Department: Room: [facility] Gender: M Product Marketing Consultant: SBBETO : [id number] Requested By: Jaren Cheung Order Number: [id number] MD: Kemal Craven Measurements Intervals [place] Rate: 130 P: [place]: QRS: 98 QRSD: 186 T: 243 QT: 457 QTc: 672 Interpretive Statements Ventricular pacing Compared to ECG 01/25/2021 07:43:35 Ventricular pacing is now present Electronically Signed On 01-29-2021 12:02:41 CDT by Kemal Craven [email or web address] <ELECTRONICALLY SIGNED> By: Kemal Craven MD, [facility] 01/29/21 1202 1030 1030 Kemal Craven MD, FACC /EPI
--- NOTE | 2021-01-29 12:05 | NUR ---
extubated at 1205 by resp therapy, placed on face mask 50%.
--- NOTE | 2021-01-29 19:37 | NUR ---
pt progressing, extubated, currently on 5L/nc, coughed up thick sputum with use of yankauer. sr irrigated with continued clear light brown urine draining. lasix iv given, had total 225 cc urine output. remains strickly npo. family and friend present to see pt today, updated. both providing support to pt.
[2021-01-30] VITALS (24 sets, daily range): BP systolic 65–143; BP diastolic 34–86
[2021-01-30 04:56] LABS: ALBUMIN 2.1 g/dL (3.4-5.0); CALCIUM 7.3 mg/dL (8.5-10.1); POTASSIUM 4.4 mmol/L (3.5-5.1)
[2021-01-30 05:13] LABS: CREATININE 5.2 mg/dL (0.7-1.3)
--- NOTE | 2021-01-30 05:54 | NUR ---
Patient was awake a lot of the night. Just this am, soundly sleeping. Patient confused at times, frequent reorientation. Patient has been v-paced this entire shift, PVCs on/off. SBP maintained on 2 mgs/min of levophed. Precedex continues at 1 mcg/kg/hr. Adequate oxygenation on 2L/NC. Good cough effort. Kept NPO until speech sees him this am. Am labs drawn and results noted. Plans for hemodialysis today. No family called this shift. Patient is progressing towards goals. See documentation on interventions for assessment details.
--- NOTE | 2021-01-30 17:28 | NUR ---
DR EVANS WANTING RT IJ LINE CHANGED OUT 01/31/21
[2021-01-31] VITALS (51 sets, daily range): BP systolic 88–160; BP diastolic 43–79
[2021-01-31 05:11] LABS: HEMATOCRIT 24.6 % (42.0-52.0); HEMOGLOBIN 8.4 gm/dL (14.0-18.0); MCH 32.7 pg (26.0-34.0); MCHC 34.2 g/dL (28.0-37.0); MCV 95.5 fL (80.0-100.0); RBC 2.57 mil/uL (4.50-6.00); RDW 13.5 % (10.5-14.5); WBC 13.5 thou/uL (4.0-11.0)
[2021-01-31 05:20] LABS: ALBUMIN 2.5 g/dL (3.4-5.0); CALCIUM 7.8 mg/dL (8.5-10.1); PHOSPHORUS 5.2 mg/dL (2.5-4.9); POTASSIUM 4.2 mmol/L (3.5-5.1)
[2021-01-31 05:40] LABS: CREATININE 4.2 mg/dL (0.7-1.3)
--- NOTE | 2021-01-31 07:53 | NUR ---
Pt remains stable. He remains AAOx4. Levophed gtt is off since last night. He became hypertensive this morning. Start cardene gtt to keep BP < 160 mmHg. Continue progressing toward goals.
--- NOTE | 2021-01-31 10:29 | NUR ---
Nutrition: pt without significant nutrition > 1 week. Not safe for oral intake yet per ST. Consider replacement of dobhoff and resume Nepro at 40 mL/hr. Pt meeting criteria for severe malnutrition.
--- NOTE | 2021-01-31 17:14 | NUR ---
NOTIFIED BY FOR PICC PLACEMENT, DE. HICKS (RENAL) APPROVED PICC PLACEMENT. CONSENT NOTED. THE RIGHT UPPER ARM BASILIC WAS WIDLEY PATENT. A #4F PICC WAS ATTEMPTED X 2 AND UNSUCCESSFUL. THE LINE COILED AND WOULD NOT DROP INTO THE SVC. A 4F MIDLINE WAS PLACED. LINE WAS SECURED AND RELEASED FOR USE
[2021-02-01] VITALS (40 sets, daily range): BP systolic 109–153; BP diastolic 40–94
--- NOTE | 2021-02-01 05:26 | NUR ---
No event tonight. Pt remains AAOx4. He is able to rest well tonight. Denies of any pain. Denies of any dyspnea. He refused breathing treatment t/o the shift. He is awares of benefits from med. Taking PO poorly. Rima remains patent with great amount of U/O. VSS. No changes of cardiac rhtyhms,pacer remains off. Continue to progress slowly toward goals.
[2021-02-01 05:36] LABS: ALBUMIN 2.9 g/dL (3.4-5.0); CALCIUM 7.9 mg/dL (8.5-10.1); PHOSPHORUS 5.6 mg/dL (2.6-4.7); POTASSIUM 3.8 mmol/L (3.5-5.1)
[2021-02-01 05:47] LABS: CREATININE 5.3 mg/dL (0.7-1.3)
--- NOTE | 2021-02-01 09:27 | NUR ---
Chart review, discussed during am rounds and los. He on o2 per nasal cannula. Possible will be ready to transfer out of icu. Started making urine. Will have dialysis today. No anticipated dc through weekend. Will cont. following as needed for dc needs.
--- NOTE | 2021-02-01 20:06 | NUR ---
PATIENT IS SLOWLY PROGRSSING TOWARDS OUTCOME GOALS. CONFUSED UPON AWAKENING FROM A NAP HE THOUGHT THE KLEENEX BOX WAS A SANDWHICH. ABLE TO FEED SELF DINNER. PO FLUIDS ENCOURAGED.
[2021-02-02] VITALS (22 sets, daily range): BP systolic 119–144; BP diastolic 41–65
[2021-02-02 05:10] LABS: ALBUMIN 2.6 g/dL (3.4-5.0); CALCIUM 7.8 mg/dL (8.5-10.1); PHOSPHORUS 3.8 mg/dL (2.6-4.7); POTASSIUM 3.9 mmol/L (3.5-5.1)
[2021-02-02 05:12] LABS: CREATININE 3.6 mg/dL (0.7-1.3)
[2021-02-02 06:04] LABS: HEMATOCRIT 23.7 % (42.0-52.0); HEMOGLOBIN 7.8 gm/dL (14.0-18.0); MCHC 32.9 g/dL (28.0-37.0); MCV 97.2 fL (80.0-100.0); RBC 2.44 mil/uL (4.50-6.00); RDW 14.1 % (10.5-14.5); WBC 11.9 thou/uL (4.0-11.0)
--- NOTE | 2021-02-02 07:00 | NUR ---
Pt remains stable in this shift. No s/sx of any distess indicates. Slowly progessing toward goals.
--- NOTE | 2021-02-02 18:13 | NUR ---
PATIENT ARRIVED AT 1805. REPORT RECIEVED FROM JOSE MARTIN WILKINSON. UPON ARRIVAL, PATIENT IS A/O X4, 2L NC, FRANKS, MAX ASSIST AND FC. PATIENT HAS NO C/O CHEST PAIN OR SHORTNESS OF BREATH.
--- NOTE | 2021-02-02 18:27 | NUR ---
Pt alert and oriented x4. Pt got up to chair with PT today. Family at bedside most of the day. Urine output adequate throughout the day. Pt tranferred to CCU Room 206.Son Jaren was left a voicemail regarding pt transfer to ccu.
[2021-02-02 18:51] LABS: HEMATOCRIT 25.4 % (42.0-52.0); HEMOGLOBIN 8.4 gm/dL (14.0-18.0)
--- NOTE | 2021-02-03 03:13 | NUR ---
Assessment completed as documented.Pt been resting in no acute distress.A/ox4.vss.on o2 at 1liters pnc,sats adequate.No resp distress reported.Rima dd,adequate uo.s/p cabg, sternal incisions with pino dressing CDI. SR w/pvcs on monitor.Denies pain.IS encouraged,pulling 500.pt has loose cough.Denies any needs or concerns.
[2021-02-03 04:22] VITALS: BP 117/80
[2021-02-03 05:54] LABS: ALBUMIN 2.8 g/dL (3.4-5.0); CALCIUM 7.9 mg/dL (8.5-10.1); CREATININE 4.1 mg/dL (0.7-1.3); DIRECT BILIRUBIN 0.6 mg/dL (<0.1-0.2); PHOSPHORUS 4.4 mg/dL (2.5-4.9); POTASSIUM 3.6 mmol/L (3.5-5.1); TOTAL BILIRUBIN 1.2 mg/dL (0.2-1.0); TOTAL PROTEIN 6.1 g/dL (6.4-8.2)
[2021-02-03 07:42] VITALS: BP 117/46
[2021-02-03 11:51] VITALS: BP 124/70
[2021-02-03 15:39] VITALS: BP 130/46
--- NOTE | 2021-02-03 16:34 | NUR ---
ASSUMED CARE SHIFT CHANGE. VSS, NO C/O PAIN. MEDS GIVEN PER OCT. PT UP WITH PHYS THERAPY IRENE FAIR. SPOUSE AT BEDSIDE THROUGHOUT SHIFT. TINY DRSNG INTACT AND FUNCTIONAL. O2 SATS WNL 1-2L O2 NC. ADEQUATE URINE OUTPUT. APPETITE ADEQUATE, REMAINS ON NECTAR THICK LEQUIDS, IRENE FAIR. PT PROGRESSING SLOWLY TOWARDS GOALS. CONT POC, DENIES NEEDS AT THIS TIME. WILL PASS ON REPORT TO JOHN PHILIPPE.
[2021-02-03 20:00] VITALS: BP 135/57
[2021-02-04] VITALS (8 sets, daily range): BP systolic 133–149; BP diastolic 52–70
[2021-02-04 04:27] LABS: CREATININE 4.3 mg/dL (0.7-1.3); PHOSPHORUS 4.6 mg/dL (2.6-4.7); POTASSIUM 3.5 mmol/L (3.5-5.1)
--- NOTE | 2021-02-04 05:58 | NUR ---
SLEPT MOST OF SHIFT. ASSIST TO REPOSITION NEEDED. WORKING ON GOALS AND PLAN OF CARE FOR NOC. DENIES COMPLAINTS OF PAIN OR SHORTNESS OF AIR. ON RA PATIENT 89-90% SO REMAINS ON 1L/NC. CONTINUE TO ASSES CLOSELY.
--- NOTE | 2021-02-04 15:12 | NUR ---
CONSULT RECEIVED THIS DATE FOR DR. HARPER TO SEE PATIENT. PATIENT HAS INSURANCE THAT REQUIRES AUTHORIZATION. INSURANCE COMPANIES CLOSED THIS DATE DUE TO HOLIDAY. PATIENT WILL BE SEEN TOMORROW, 02/05/21, BY VY CALABRESE. IF PATIENT IS APPROPRIATE FOR ACUTE REHAB STAY AND DESIRES [facility] ADMISSION, AUTHORIZATION WILL BE REQUESTED.
[2021-02-05] VITALS (8 sets, daily range): BP systolic 123–180; BP diastolic 51–97
--- NOTE | 2021-02-05 04:30 | NUR ---
SLEPT MOST OF SHIFT. DENIES COMPLAINTS OF PAIN OR SHORTNESS OF AIR. REMAINS ON 2L/NC AT THIS TIME. STATES IS JUST GETTING TIRED OF BEING HERE AND WANTS TO GO HOME. POSSIBLE TRANSFER TO REHAB TODAY OR THURSDAY. VOIDING PER URINAL WITHOUT PROBLEMS. CONTINUE TO ASSES CLOSELY.
[2021-02-05 08:04] LABS: CALCIUM 8.3 mg/dL (8.5-10.1); POTASSIUM 3.7 mmol/L (3.5-5.1)
[2021-02-05 08:08] LABS: ALBUMIN 3.2 g/dL (3.4-5.0); PHOSPHORUS 4.1 mg/dL (2.6-4.7)
[2021-02-05] MEDS ORDERED: IRON325 PO (13:33)
[2021-02-05] MEDS ORDERED: ALBUTEROL2.5 MG/0.5 INH (13:34)
[2021-02-05] MEDS ORDERED: IPRAT-ALBUT 0.5-3 ML INH (13:34)
[2021-02-05] MEDS ORDERED: PACERONE 200 M200 M1 PO (13:34)
[2021-02-05] MEDS ORDERED: NORVASC5 MG PO (13:35)
[2021-02-05] MEDS ORDERED: LIPITOR40 MG PO (13:35)
[2021-02-05] MEDS ORDERED: ADULT LOW DOSE81 MG PO (13:36)
[2021-02-05] MEDS ORDERED: HYDROCODON-ACE1 EAC7 PO (13:36)
[2021-02-05] MEDS ORDERED: PULMICORT0.5 MG/21 INH (13:45)
[2021-02-05] MEDS ORDERED: PROTONIX 20 MG20 M1 PO (13:46)
--- NOTE | 2021-02-05 16:45 | NUR ---
PT CARE ASSUMED AT 0700. ASSESSMENTS CHARTED. MEDICATIONS CHARTED. PERLITA MIDLINE. URINAL. STERNUM; TINY DRESSING. DIET: HH, THIN LIQUIDS, FLUID RESTRICTION: 2000 ML, ACHS. PT TO BE TRANSFERRED TO REHAB ONCE INSURANCE ACCEPTS. DIALYSIS: TEMPORARY CATHETER, SHEILA.
--- NOTE | 2021-02-05 16:57 | NUR ---
Case discussed with the care team. [facility] liason indicates they can accept pending ins auth and bed availability. They have submitted auth today. No dialysis today. CTS aware and agreeable to acute rehab once auth rec'd. Will follow.
[2021-02-06 03:12] LABS: CALCIUM 7.8 mg/dL (8.5-10.1); CREATININE 3.3 mg/dL (0.7-1.3); POTASSIUM 3.2 mmol/L (3.5-5.1)
[2021-02-06 03:56] VITALS: BP 129/73
--- NOTE | 2021-02-06 07:49 | NUR ---
SLEPT PART OF SHIFT. DENIES NEED FOR CHEST PAIN. REMAINS ON 2L/NC. DENIES SHORTNESS OF AIR. PROGRESSING SLOWLY TOWARDS POSSIBLE DISCHARGE TO REHAB. CONTINUE TO ASSES. MAINTAIN FLUID RESTRICTION.
[2021-02-06 07:50] VITALS: BP 137/61
--- NOTE | 2021-02-06 09:37 | NUR ---
PATIENT IS A CANDIDATE FOR ACUTE REHAB ADMISSION. AUTHORIZATION FOR REHAB REQUESTED 02/05/21. AWAITING INSURANCE RESPONSE.
[2021-02-06 11:35] VITALS: BP 127/79
[2021-02-06 15:25] VITALS: BP 148/56
[2021-02-06 19:45] VITALS: BP 140/51
[2021-02-07 04:08] VITALS: BP 145/61
[2021-02-07 07:51] VITALS: BP 146/55
[2021-02-07 08:06] LABS: ALBUMIN 3.1 g/dL (3.4-5.0); CALCIUM 8.1 mg/dL (8.5-10.1); CREATININE 2.7 mg/dL (0.7-1.3); PHOSPHORUS 3.2 mg/dL (2.5-4.9); POTASSIUM 3.5 mmol/L (3.5-5.1)
[2021-02-07 11:19] VITALS: BP 124/47
--- NOTE | 2021-02-07 12:06 | NUR ---
LEFT TEMPORARY DIALYSIS LINE REMOVED PER POLICY. PRESSURE HELD FOR 10-15MN. AN OCCLUSIVE DRESSING APPLIED AND EDUCATION ON CHEEPING THE SITE OCCLUSIVE FOR 48 HOURS DISCUSSED WELL THE PATIENT WOULD NEED T BE LESS ACTIVE FOR AN HOUR POST REMOVAL TO HELP PREVENT BLEEDING. THE PATIENT VERBALIZED UNDERSTANDING
--- NOTE | 2021-02-07 12:42 | NUR ---
[facility] elias indicates pt's insurance plan has approved an acute rehab stay. He is dc ready today per the attending and CTS. Staff updated and pt is anxious to get his rehab started. Dc to [facility] anticipated later this afternoon once the bed is available.
[2021-02-07 15:28] VITALS: BP 136/48
--- NOTE | 2021-02-07 15:37 | NUR ---
REPORT GIVEN TO JOSE MARTIN ANDERSON ON . NO QUESTIONS OR CONCERNS DURING REPORT. PATIENTS DISCHARGE PAPERS AND PRINTED SCRIPTS SENT WITH PATIENT. AT BEDSIDE UPDATED ON WHICH ROOM PATIENT GOING TO.
== END 2021-02-07 16:10 | DRG 235 ==
LOC: PRE 06:09 → ICU 06:23 → TBA 06:23 → PRE 10:12 → ICU 14:07 → 2N 02-02 18:10
PROVIDERS: Family Medicine; Hospitalist; Internal Medicine; Internal Medicine Nephrology; Nurse Practitioner Adult Health; Pediatrics; Physician Assistant; ADMIT Surgery Vascular Surgery; ATTEND Surgery Vascular Surgery
DX: I25.10 Atherosclerotic heart disease of native coronary artery without angina pectoris (principal); R57.0 Cardiogenic shock; J96.21 Acute and chronic respiratory failure with hypoxia; E43 Unspecified severe protein-calorie malnutrition; J18.9 Pneumonia, unspecified organism; N17.9 Acute kidney failure, unspecified; D62 Acute posthemorrhagic anemia; E87.2 Acidosis; G72.81 Critical illness myopathy; E87.0 Hyperosmolality and hypernatremia; I70.1 Atherosclerosis of renal artery; Z20.822 Contact with and (suspected) exposure to COVID-19; E78.5 Hyperlipidemia, unspecified; E04.1 Nontoxic single thyroid nodule; N18.9 Chronic kidney disease, unspecified; E78.00 Pure hypercholesterolemia, unspecified; D72.829 Elevated white blood cell count, unspecified; D69.6 Thrombocytopenia, unspecified; R74.01 Elevation of levels of liver transaminase levels; D64.9 Anemia, unspecified; D49.4 Neoplasm of unspecified behavior of bladder; E11.22 Type 2 diabetes mellitus with diabetic chronic kidney disease; I12.9 Hypertensive chronic kidney disease with stage 1 through stage 4 chronic kidney disease, or unspecified chronic kidney disease; R31.0 Gross hematuria; I49.9 Cardiac arrhythmia, unspecified; R53.81 Other malaise; E87.6 Hypokalemia; I95.9 Hypotension, unspecified; I48.91 Unspecified atrial fibrillation; Z79.82 Long term (current) use of aspirin; Z79.899 Other long term (current) drug therapy; Z98.42 Cataract extraction status, left eye; Z98.41 Cataract extraction status, right eye; Z68.29 Body mass index [BMI] 29.0-29.9, adult
CPT/HCPCS: 10078; 10081; 27000; 32100; 47000; 47001; 47002; 47297; 48889; 50010; 50249; 50668; 51301; 52259; 52287; 53327; 53358; 54118; 56455; 56524; 56525; 56526; 56527; 56528; 56531; 56534; 56668; 56719; 56760; 56898; 57093; 57116; 57167; 62110; 62950; 65003; 65020; 65040; 65090; 65120; 65135

== ENCOUNTER 2021-02-07 11:45 | Inpatient (IN) | payer OTHER ==
[~2021-02-07] VITALS: Ht 175.3 cm; Wt 90.4 kg
--- NOTE | ~2021-02-07 | PLAN ---
[facility] [place] [address] REHAB UNIT PLAN OF CARE Name: OFELIA MAHAN Room #: 514-P ADM IN M.R.#: [id number] Admission: 02/07/21 Attend Phys: Tam Huff MD Discharge: Date of : 39 Report #: [id number] THIS REPORT FOR: cc: Jun Sanon MD, Neal A. MD Smithson,Tam Umanzor MD ~ DATE OF SERVICE: 02/09/2021 OVERALL PLAN OF CARE SUBJECTIVE: The overall plan of care is based on the pre-admit screen and information garnered from therapy assessments. The patient has been working with the rehabilitation therapy team. 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 Transfers are mod assist with gait up to 100 feet with a front-wheeled walker, needing assistance. In occupational therapy, lower body dressing is min assist with upper body dressing with min assist. In speech therapy, he has mild cognitive deficits with smnt-ag-kumubaqh memory deficits. He had a regular, thin diet. ASSESSMENT: 1. Critical illness myopathy. 2. Coronary artery disease, status post coronary artery bypass grafting x 4 on 01/21/2021. 3. Acute hypoxemic respiratory failure. 4. Acute renal insufficiency. 5. Hypertension with hypotension. 6. Acute blood loss anemia. 7. Renal artery stenosis. 8. Thyroid nodule. PLAN: The overall plan of care is based on the pre-admit screen and information garnered from therapy assessments. 1. Estimated length of stay is probably around 10-14 days. 2. Medical prognosis is reasonably good. 3. Anticipated interventions includes the interdisciplinary acute inpatient palpitation program. 4. Anticipated functional outcomes would be for the patient to become modified independent with transfers, mobility and ADLs, so that he can hopefully return back to his prior living situation. 5. Discharge destination would be back to the home setting where he lives at home alone. He has a supportive girlfriend and has children in the area. 6. Expected therapy by discipline includes PT, OT and speech 1 hour per day each 5 days a week throughout the duration of the acute inpatient rehabilitation program. ADDENDUM: The patient's prognosis for significant practical improvement within [facility] [address] [place] [address] REHAB UNIT PLAN OF CARE Name: OFELIA MAHAN Room #: 514-P [facility]#: [id number] Admission: 02/07/21 Attend Phys: Tam Huff MD Discharge: Date of : 39 Report #: [id number] a reasonable period of time appears good. Given the patient's complex medical condition and risk of further medical complication, rehabilitation services could not be safely provided at a lower level of care such as a longterm facility. By: [id number] Tam Huff MD /nt
[~2021-02-07 11:45] MED LIST changes: +ADULT LOW DOSE81 MG PO; +ALBUTEROL2.5 MG/0.5 INH; +HYDROCODON-ACE1 EAC7 PO; +IPRAT-ALBUT 0.5-3 ML INH; +IRON325 PO; +LIPITOR40 MG PO; +NORVASC5 MG PO; +PACERONE 200 M200 M1 PO; +PROTONIX 20 MG20 M1 PO; +PULMICORT0.5 MG/21 INH
[2021-02-07 16:30] VITALS: BP 133/57
--- NOTE | 2021-02-07 16:30 | NUR ---
PT CAME UP FROM CCU. PT HAD CABG X4 ON JANUARY 21 DUE TO A STRESS TEST THAT THE DR WAS NOT HAPPY WITH. PT IS AND LIVES ALONE, PT DOES HAVE A LADY FRIEND KARLEY HE HAS BEEN SEEING FOR 6 YRS. PT DOES HAVE DPOA HIS SON RODGER. PT HAS COUGH WITHOUT PRODUCTION. PT HAS RHONCHI TO LOWER LOBES AND EXP WHEEZE TO LEFT LLL. PT HAS OXYGEN ON 2L NC. PT WAS A PREVIOUS SMOKER OF 40 YRS AND QUIT 20 YRS AGO. PT DID SMOKE ABOUT 2 PACKS A DAY. PT DOES SAY HE DRINKS BURBON DAILY AROUND OPAL TIME ABOUT 2 DRINKS. PT HAS DRESSING TO STERNUM, D/I. DRESSING TO LEFT NECK, D/I. OPEN TO AIR LEFT GROIN. CHEST TUBE INSERTION IS OPEN TO AIR ALSO. PT DENIES ANY PAIN AT THIS TIME. PT HAS SPLINTING PILLOW FOR COUGH. PT STATED HE IS NOT DIABETIC AND THEY WAS CHECKING HIS SUGARS IN CCU. PT HAS NO IV AT THIS TIME, MIDLINE TO RT ARM WAS TAKEN OUT. PT STATED BM TODAY AND WAS NORMAL. PT ORIENTED TO SELF AND PLACE AND SITUATION.
[2021-02-07 20:00] VITALS: BP 142/52
[2021-02-08 00:51] VITALS: BP 142/53
--- NOTE | 2021-02-08 00:51 | NUR ---
RT IN TO GIVE PT A BREATHING TREATMENT. NOTED HR ON PULSE OX WAS 36. VITAL SIGNS CHECKED WITH HEART RATE 36 AND BP 142/53. HEART RATE CHECKED BY THIS NURSE MANUALLY AND IT WAS 72. CHECKED BY SECOND NURSE AND IT WAS 52. HR IRREGULAR. PT DENIES CHEST PAIN, SOB, DIZZINESS. PT ALERT AND ORIENTED X 4. MARTÍNEZ VO NP NOTIFIED WITH ORDER RECEIVED FOR EKG. PRIMER ASSEMBLER HERE TO DO EKG.
[2021-02-08 06:24] LABS: HEMATOCRIT 23.9 % (42.0-52.0); HEMOGLOBIN 7.9 gm/dL (14.0-18.0); MCH 32.4 pg (26.0-34.0); MCHC 33.2 g/dL (28.0-37.0); MCV 97.6 fL (80.0-100.0); RBC 2.45 mil/uL (4.50-6.00); RDW 14.2 % (10.5-14.5); WBC 9.1 thou/uL (4.0-11.0)
[2021-02-08 06:38] LABS: ALBUMIN 3.2 g/dL (3.4-5.0); CALCIUM 8.2 mg/dL (8.5-10.1); CREATININE 2.4 mg/dL (0.7-1.3); PHOSPHORUS 2.8 mg/dL (2.5-4.9); POTASSIUM 3.4 mmol/L (3.5-5.1)
--- NOTE | 2021-02-08 06:55 | NUR ---
Chart review, case opened/acute rehab. Enmanuel has visited with donovan on acute prior to moving out of icu to ccu. Prior to hospital, he was independent. lives alone, manage own medication, and has no dme needs. Drives vehicle. Prim Dr wild. No hh or rehab in the past. Sig other andreia. Son is his dpoa jesús and main contact. Will cont following as needed for dc needs.
[2021-02-08 07:02] LABS: FOLIC ACID 17.2 ng/mL (8.6-58.9)
[2021-02-08 08:00] VITALS: BP 145/65
--- NOTE | 2021-02-08 09:09 | EKG ---
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: EDA : [id number] Requested By: Liz Mendenhall Order Number: [id number] MD: Kemal Craven Measurements Intervals [place] Rate: 70 P: 0 NM: 64 QRS: 56 QRSD: 130 T: 143 QT: 483 QTc: 522 Interpretive Statements Sinus rhythm Multiform ventricular premature complexes Nonspecific ST and T wave abnormality Compared to ECG 01/29/2021 10:30:32 Ventricular pacing is no longer present Electronically Signed On 02-08-2021 9:08:59 CDT by Kemal Craven [email or web address] <ELECTRONICALLY SIGNED> By: Kemal Craven MD, [facility] 02/08/2108 9 9 Kemal Craven MD, [facility] /EPI
--- NOTE | 2021-02-08 09:28 | NUR ---
ADM KDUR 40MEQ PO X1 PER ORDERS. PT HAD A DIFFICULT TIME SWALLOWING LARGE PILL. PT DID GET MEDICATION DOWN WITH WATER.
--- NOTE | 2021-02-08 09:28 | NUR ---
PT WORKED WITH THERAPY TODAY. PT USES WALKER TO AMBULATE. PT HAS OXYGEN ON 1 LITER. PT LUNGS SOUND CLEAR THIS AM, PT STATED HE DID SPIT UP SOME PHLEM WHILE WORKING WITH THERAPY. PT DENIES ANY PAIN. PT HAS DRESSING TO STERNAL AREA THAT IS D/I. PT HAS DRESSING TO LEFT NECK THAT IS D/I, AND PT HAS LFT GROIN INCISION THAT IS OPEN TO AIR. PT DIDN'T APPEAR TO HAVE ANY SOB WITH ACTIVITY.
--- NOTE | 2021-02-08 12:03 | NUR ---
Nutrition: pt transferred to rehab post CABG x 4 with prior need for intubation and dialysis. No longer requiring dialysis. Admitting dx to rehab critical illness myopathy. Pt eating 50-100% of meals with ensure max daily for additional protein. Weights last month 198-203. Currently 197#. S/P IVFs for hypernatremia. BM 02/07. Vitamin D level pending. On Ferrous sulfate. Consider low nutrition risk with interventions in place.
--- NOTE | 2021-02-08 14:23 | NUR ---
IV STARTED TO LEFT HAND DUE TO HANGING D5 0.225% NS AT 125ML/HR X1.
--- NOTE | 2021-02-08 17:30 | NUR ---
PT BACK TO BED AND IS EATING A HAMBURGER AND HIS VEGE. SAIRA IS HERE NOW AND ASSISTING WITH HIS CARE.
--- NOTE | 2021-02-08 18:00 | NUR ---
DRESSING CHANGES DONE TO LEFT ABD, LEFT GROIN, RT THIGH FRONTAL AND RT THIGH LATERAL. PT TOLERATED WELL. Z-GUARD PLACED TO BUTTOCKS AND TO SCROTUM.
--- NOTE | 2021-02-08 19:30 | NUR ---
DRESSING TO CHEST WAS REPLACED TODAY WITH [place] BANDAID. DR. DE LA CRUZ CAME TO ROOM AFTER LUNCH AND EDUCATED ON DIET. HE BROUGHT A DRESSING FOR STERNUM DRESSING CHANGES. INCISION IS WELL APPROXIMATED AND ALSO NO SIGNS OF REDDNESS.
[2021-02-08 19:41] VITALS: BP 138/47
--- NOTE | 2021-02-09 00:39 | NUR ---
PT ALERT AND ORIENTED X 4. CHEST DRESSING C/D/I. IV FLUIDS INFUSED ORDERED. VOIDING YELLOW URINE PER URINAL. PT DENIES PAIN OR DISCOMFORT. BED ALARM ON FOR SAFETY. PT APPEARS TO BE SLEEPING ON HOURLY ROUNDS.
[2021-02-09 05:26] LABS: ALBUMIN 3.2 g/dL (3.4-5.0); CALCIUM 8.3 mg/dL (8.5-10.1); CREATININE 2.5 mg/dL (0.7-1.3); PHOSPHORUS 2.4 mg/dL (2.6-4.7); POTASSIUM 3.7 mmol/L (3.5-5.1)
[2021-02-09 09:22] VITALS: BP 130/59
[2021-02-09 20:15] VITALS: BP 105/53
--- NOTE | 2021-02-10 01:44 | NUR ---
PT ASSESSMENT COMPLETED AND VSS. MEDS GIVEN ORDERED AND WELL TOLERATED. FALL PRECAUTIONS IN PLACE. VOIDING LARGE AMOUNT OF DARK YELLOW URINE PER URINAL. DSG TO CHEST DRY AND INTACT. STERNAL PRECAUTIONS FOLLOWED. PT DENIES NEEDS. WILL CONTINUE TO MONITOR FREQUENTLY.
[2021-02-10 04:37] LABS: CALCIUM 8.1 mg/dL (8.5-10.1); CREATININE 2.3 mg/dL (0.7-1.3)
[2021-02-10 07:15] VITALS: BP 131/88
[2021-02-10 07:20] VITALS: BP 131/88
--- NOTE | 2021-02-10 18:12 | NUR ---
ASSUMED C/O PT AT 0700. PT A&OX4. PT WILLINGLY WORKS WITH THERAPIES. PT IS CALL LIGHT APPROPRIATE. CONTINUE WITH poc.
[2021-02-10 19:36] VITALS: BP 150/66
--- NOTE | 2021-02-11 04:44 | NUR ---
NO SIGNIFICANT EVENTS DURING THE NIGHT. PT SLEPT MOST OF THE NIGHT. RESPIRATIONS EVEN AND UNLABORED. HE HAS A PRODUCTIVE COUGH AND REPORTED COUGHING UP YELLOW-COLORED SPUTUM. VOIDS INDEPENDENTLY VIA URINAL. STERNAL INCISION C/D/I WITH DRESSING IN PLACE. DENIES ANY PAIN. PROGRESSING TOWARD POC GOALS. WILL CONTINUE TO MONITOR FURTHER.
[2021-02-11 08:00] VITALS: BP 137/49
--- NOTE | 2021-02-11 10:30 | NUR ---
PLACED NEW DRESSING OVER INCISION TO STERNUM. APPROXIMATED WELL, NO SIGNS OF INFECTION, X3 INCISIONAL AREAS TO ABD THAT ARE OPEN TO AIR.
--- NOTE | 2021-02-11 11:00 | NUR ---
TOLD CARDS LIBRARY TECHNOLOGY INSTRUCTOR ABOUT PT BP 137/49, 36 PULSE AND DIDN'T KNOW ABOUT ADM OF AMIODARONE AND NORVASC. SHE STATED ITS OK FOR AMIODARONE DUE TO PT HAS BIGEMINY AND THAT IF PULSE TAKEN FROM MACHINE IT WOULD NOT BE ACCURATE.
--- NOTE | 2021-02-11 11:20 | NUR ---
GAVE PT HEART AND BP MED. BP 147/54, PULSE MANUAL 40.
--- NOTE | 2021-02-11 13:40 | NUR ---
CALLED DR. EVANS OFFICE FOR RESULTS OF US EXT. ARTERIAL DOPPLER. THEY SAID THAT THEY WILL PRINT REPORT OFF COMPUTER AND GIVE IT TO
[2021-02-11 19:50] VITALS: BP 133/55
--- NOTE | 2021-02-12 02:50 | NUR ---
PATIENT AWAKE, USING IS AND FLUTTER VALVE HOURLY AND COUGHING UP GOOD AMOUNT OF YELLOW SPUTUM. STATES WALKING REALLY HELPS BRING IT UP TOO. PLEASANT, DECLINES COLACE AND MIRALAX HE IS HAVING REGULAR BOWEL MOVEMENTS
[2021-02-12 08:00] VITALS: BP 161/116
[2021-02-12 11:15] VITALS: BP 132/62
--- NOTE | 2021-02-12 14:27 | NUR ---
Team meeting, dc on ( pt, ot, nursing) and cont. with sternal precaution. Will need fww.
[2021-02-12 19:55] VITALS: BP 144/56
--- NOTE | 2021-02-12 23:34 | NUR ---
PT ALERT AND ORIENTED X 4. DRESSING TO CHEST C/D/I. VOIDING ADEQUATE AMTS YELLOW URINE PER URINAL. PT REFUSED MIRALAX AT HS. 2+ PEDAL EDEMA BILAT. LE'S ELEVATED ON PILLOWS. PT DENIES PAIN OR DISCOMFORT. BED ALARM ON FOR SAFETY. PT APPEARS TO BE SLEEPING ON HOURLY ROUNDS.
[2021-02-13 06:09] LABS: ALBUMIN 3.3 g/dL (3.4-5.0); CALCIUM 8.2 mg/dL (8.5-10.1); CREATININE 2.3 mg/dL (0.7-1.3); PHOSPHORUS 3.1 mg/dL (2.5-4.9); POTASSIUM 3.8 mmol/L (3.5-5.1)
[2021-02-13 07:15] VITALS: BP 148/55
[2021-02-13 11:44] LABS: BASOPHILS 1.2 % (0.0-2.0); EOSINOPHILS 4.1 % (0.0-3.0); HEMATOCRIT 25.1 % (42.0-52.0); HEMOGLOBIN 8.1 gm/dL (14.0-18.0); LYMPHOCYTES 13.2 % (24.0-44.0); MCH 32.2 pg (26.0-34.0); MCHC 32.4 g/dL (28.0-37.0); MCV 99.5 fL (80.0-100.0); MONOCYTES 9.7 % (1.0-8.0); PLATELET COUNT 353 thou/uL (150-400); POLYS 71.8 % (36.0-66.0); RBC 2.52 mil/uL (4.50-6.00); RDW 15.4 % (10.5-14.5); WBC 8.3 thou/uL (4.0-11.0)
[2021-02-13 15:23] VITALS: BP 148/55
--- NOTE | 2021-02-13 15:25 | NUR ---
Order Checker Packer Processer spoke with pt/ at bedside. All parties anticipating dc to home with haydee and blade on Thursday 02/15. [facility] has been given a script and they will issued the FWW to the pt prior to his dc Thursday am. [facility] was the pt's preference for hh however they can accept any addtional [employer] cases. Pt advised and he denies preference. Referral called and faxed to [facility] per their liason. They can accept. Pt aware and agreeable.
[2021-02-13 20:05] VITALS: BP 173/116
[2021-02-13 20:45] VITALS: BP 155/71
--- NOTE | 2021-02-14 04:59 | NUR ---
COUGH CONTINUES, PATIENT USING INCENTIVE SPIROMETER FREQUENTLY. ANTICIPATING GOING HOME THURSDAY. USING URINAL. LAYING IN BED AND FOLLOWING STERNAL PRECAUTIONS.
[2021-02-14 08:00] VITALS: BP 150/65
--- NOTE | 2021-02-14 10:21 | NUR ---
PT FINISHED WITH THERAPY AND BACK TO BED. ADM AM MEDS. PT DRESSING D/I TO STERNUM. PT DENIES ANY PAIN. HAS DRY COUGH THAT IS GETTING BETTER. PT USES URINAL TO VOID OR BATHROOM WITH WALKER. PT IS UP X1 STAND-BY ASSIST. STERNAL PRECAUTIONS. ADM LASIX 20MG PO FOR SWELLING TO PEDAL +1 BILATRAL. PT LASIX IS PRN. PT GOING HOME TOMMORROW.
--- NOTE | 2021-02-14 19:17 | NUR ---
PT HAD A GOOD DAY TODAY. NO COMPLAINTS OF PAIN. PT REQUEST A GOWN TO CHANGE INTO FOR THE OPAL. PT UP WITHOUT A WALKER AT THIS TIME, STAND-BY ASSIST.
[2021-02-14 21:08] VITALS: BP 164/58
--- NOTE | 2021-02-15 00:32 | NUR ---
PT ALERT AND ORIENTED X 4. VOIDING PER URINAL. 2+ LE EDEMA NOTED. CHEST DRESSING C/D/I. PT REFUSED COLACE AND MIRALAX AT HS. PT DENIES PAIN OR DISCOMFORT. BED ALARM ON FOR SAFETY. PT APPEARS TO BE SLEEPING ON HOURLY ROUNDS.
[2021-02-15 04:35] VITALS: BP 170/112
[2021-02-15 05:03] LABS: CALCIUM 8.1 mg/dL (8.5-10.1); CREATININE 2.1 mg/dL (0.7-1.3); MAGNESIUM 1.5 mg/dL (1.8-2.4); POTASSIUM 3.7 mmol/L (3.5-5.1)
[2021-02-15 05:05] VITALS: BP 166/116
[2021-02-15 05:11] VITALS: BP 157/59
[2021-02-15 05:20] LABS: ABSOLUTE NEUTROPHILS 5.4 thou/uL (1.4-8.2); BASOPHILS 1.2 % (0.0-2.0); HEMATOCRIT 24.2 % (42.0-52.0); HEMOGLOBIN 8.2 gm/dL (14.0-18.0); LYMPHOCYTES 14.3 % (24.0-44.0); MCH 32.9 pg (26.0-34.0); MCHC 33.8 g/dL (28.0-37.0); MCV 97.3 fL (80.0-100.0); MONOCYTES 10.1 % (1.0-8.0); PLATELET COUNT 307 thou/uL (150-400); POLYS 69.4 % (36.0-66.0); RBC 2.48 mil/uL (4.50-6.00); RDW 14.7 % (10.5-14.5); WBC 7.7 thou/uL (4.0-11.0)
[2021-02-15 06:25] VITALS: BP 148/60
[2021-02-15 07:15] VITALS: BP 149/109
[2021-02-15] MEDS ORDERED: VITAMIN D325 MC1 PO (08:37)
[2021-02-15] MEDS ORDERED: NORVASC5 MG PO (08:37)
[2021-02-15] MEDS ORDERED: LASIX 20 MG TAB20 MG PO ×2 (08:37→09:53)
[2021-02-15] MEDS ORDERED: FOLIC ACID1 MG PO (08:37)
[2021-02-15] MEDS ORDERED: PACERONE 200 M200 M1 PO (08:37)
[2021-02-15] MEDS ORDERED: LIPITOR40 MG PO (08:37)
[2021-02-15] MEDS ORDERED: ADULT LOW DOSE81 MG PO (08:37)
[2021-02-15] MEDS ORDERED: IRON325 PO (08:37)
[2021-02-15 08:43] VITALS: BP 149/109
[2021-02-15] MEDS ORDERED: OLMESARTAN-HCT1 EAC2 PO (09:52)
[2021-02-15] MEDS ORDERED: VENTOLIN HFA 1818 GM INH (09:53)
[2021-02-15] MEDS ORDERED: COLACE100 MG PO (09:54)
--- NOTE | 2021-02-15 10:59 | NUR ---
ASSUMED CARE AT 0700. ALERT AND ORIENTATED X 4. BP ELEVATED THIS MORNING AND MAGGY LINE PATROLMAN NOTIFIED. NO NEW MEDS ADDED. PT DENIES ANY PAIN, LIGHTHEADEDNESS OR DIZZINESS. SLIGHT SOA WITH EXERTION. UP WITH MIN ASSIST. TOLERATES HIS MEDS WITH THIN. DIURESING ADEQ. EXCITED ABOUT DC PLANNING. DRESSING TO MID CHEST REMOVED AND OK PER SAMANTA TO LEAVE IT OFF AND TAKE A SHOWER. DC INSTRUCTIONS EDUCATED TO PT. NEW WALKER WITH PT. PT WHEELED OUT OF UNIT AT 1030 WITH A FRIEND.
== END 2021-02-15 11:00 | disposition home health service (06) | DRG 91 ==
PROVIDERS: Hospitalist; Nurse Practitioner; Nurse Practitioner Family; ADMIT Physical Medicine & Rehabilitation; ATTEND Physical Medicine & Rehabilitation
DX: G72.81 Critical illness myopathy (principal); J96.01 Acute respiratory failure with hypoxia; N17.9 Acute kidney failure, unspecified; D62 Acute posthemorrhagic anemia; E87.0 Hyperosmolality and hypernatremia; I25.10 Atherosclerotic heart disease of native coronary artery without angina pectoris; I10 Essential (primary) hypertension; I95.9 Hypotension, unspecified; E87.6 Hypokalemia; Z60.2 Problems related to living alone; E78.00 Pure hypercholesterolemia, unspecified; E04.1 Nontoxic single thyroid nodule; R00.1 Bradycardia, unspecified; G31.84 Mild cognitive impairment of uncertain or unknown etiology; Z95.1 Presence of aortocoronary bypass graft; Z79.899 Other long term (current) drug therapy; Z79.82 Long term (current) use of aspirin; Z98.41 Cataract extraction status, right eye; Z98.42 Cataract extraction status, left eye; Z87.891 Personal history of nicotine dependence
CPT/HCPCS: 10112

== ENCOUNTER → 2021-08-08 | Outpatient (CLI) | payer OTHER ==
[~2021-08-08] MED LIST changes: +COLACE100 MG PO; +FOLIC ACID1 MG PO; +LASIX 20 MG TAB20 MG PO; +OLMESARTAN-HCT1 EAC2 PO; +VENTOLIN HFA 1818 GM INH; +VITAMIN D325 MC1 PO
== END ==
LOC: SJCVCIMAG 07:07
PROVIDERS: ATTEND Internal Medicine Cardiovascular Disease
DX: I49.3 Ventricular premature depolarization (principal); N13.30 Unspecified hydronephrosis; I10 Essential (primary) hypertension; I25.10 Atherosclerotic heart disease of native coronary artery without angina pectoris; E78.5 Hyperlipidemia, unspecified; Z95.5 Presence of coronary angioplasty implant and graft; Z79.899 Other long term (current) drug therapy

== ENCOUNTER → 2021-09-05 | Outpatient (CLI) | payer OTHER | LOC: SJCVC 09:10 | PROVIDERS: ATTEND Internal Medicine Cardiovascular Disease | DX: I25.810 Atherosclerosis of coronary artery bypass graft(s) without angina pectoris (principal); I12.9 Hypertensive chronic kidney disease with stage 1 through stage 4 chronic kidney disease, or unspecified chronic kidney disease; E78.00 Pure hypercholesterolemia, unspecified; N18.2 Chronic kidney disease, stage 2 (mild); C67.9 Malignant neoplasm of bladder, unspecified; E04.1 Nontoxic single thyroid nodule; I70.1 Atherosclerosis of renal artery; F17.200 Nicotine dependence, unspecified, uncomplicated; Z95.1 Presence of aortocoronary bypass graft; Z72.89 Other problems related to lifestyle; Z88.8 Allergy status to other drugs, medicaments and biological substances; Z79.82 Long term (current) use of aspirin; Z79.899 Other long term (current) drug therapy ==